=== PATIENT | male | born 2000 | race Caucasian/White ===

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

== ENCOUNTER 2021-09-27 06:04 | Emergency (ER) | payer BC, OTHER ==
[2021-09-27] MEDS ORDERED: Alum Hydrox/Mag Hydrox/Simeth 30 ML, Lidocaine 2% 15 ML PO ONE ×2 (07:05)
[2021-09-27] MEDS ORDERED: Pantoprazole 40 MG Tab.CR PO ONE (08:52)
== END 2021-09-27 09:15 | disposition home or self-care (01) ==
LOC: JD.ED 06:04
DX: R07.89 Other chest pain (principal); K29.00 Acute gastritis without bleeding; Z79.899 Other long term (current) drug therapy
CPT/HCPCS: 36415; 71045; 80053; 83690; 84484; 85025; 93005; 99285; A9270